=== PATIENT | male | born 1965 | race Caucasian/White ===

== ENCOUNTER 2017-04-06 05:14 | Inpatient (IN) | payer OTHER ==
[2017-04-04 12:59] LABS: BASOPHILS % (AUTO) 0.4 % (0-1); EOSINOPHILS # (AUTO) 0.3 X10'3 (0-0.9); EOSINOPHILS % (AUTO) 4.1 % (0-6); LYMPHOCYTES # (AUTO) 1.8 X10'3 (1.1-4.8); MEAN CORPUSCULAR HEMOGLOBIN 30.3 PG (27.0-31.0); MEAN CORPUSCULAR HGB CONC 34.6 % (33.0-36.5); MEAN CORPUSCULAR VOLUME 87.6 FL (78-98); MEAN PLATELET VOLUME 9.7 FL (7.4-10.4); MONOCYTES # (AUTO) 0.6 X10'3 (0-0.9); MONOCYTES % (AUTO) 9.4 % (2-12); NEUTROPHILS % (AUTO) 59.1 % (42-75); PRE OP HEMATOCRIT 46.5 % (42.0-52.0); PRE OP HEMOGLOBIN 16.1 g/dL (14.0-17.9); PRE OP PLATELET COUNT 184 X10'3 (140-440); RED BLOOD COUNT 5.31 X10'6 (4.70-6.10); RED CELL DISTRIBUTION WIDTH 13.4 % (11.5-14.5)
[2017-04-04 13:10] LABS: PRE OP INR 1.1 INR; PRE OP PROTIME 11.2 SECONDS (9.0-12.0)
[2017-04-04 13:13] LABS: CLARITY,URINE CLEAR (Clear); COLOR,URINE YELLOW (Yellow); GLUCOSE, URINE NEGATIVE (Neg); KETONES,URINE NEGATIVE (Neg); LEUKOCYTE ESTERASE ,URINE NEGATIVE (Neg); NITRITES, URINE NEGATIVE (Neg); OCCULT BLOOD,URINE NEGATIVE (Neg); PROTEIN,URINE NEGATIVE (Neg); UROBILINOGEN,URINE 0.2 E.U/dL (0.2-1.0)
[2017-04-04 13:16] LABS: UA COLLECTION TYPE CLN CATCH MIDSTREAM
[2017-04-04 13:17] LABS: ALBUMIN 3.8 G/DL (3.4-5.0); ALBUMIN/GLOBULIN RATIO 1.2 (1.1-1.5); ALKALINE PHOSPHATASE 132 IU/L (46-116); BLOOD UREA NITROGEN 20 MG/DL (7-18); BUN/CREATININE RATIO 16.8 (5.4-32.0); CHLORIDE 104 MMOL/L (99-107); CREATININE 1.19 MG/DL (0.60-1.10); PRE OP ANION GAP 7 (8-16); PRE OP AST 35 U/L (10-37); PRE OP BILIRUB, TOTAL 0.6 MG/DL (0.0-1.0); PRE OP GLUCOSE 212 MG/DL (70-104); PRE OP POTASSIUM 4.1 MMOL/L (3.4-5.1); PRE OP SODIUM 142 MMOL/L (135-145); TOTAL CARBON DIOXIDE 31.2 MMOL/L (24-32); eGFR 64 ML/MIN
[2017-04-04 13:18] LABS: PRE OP ALT 108 U/L (30-65)
[2017-04-04 13:20] LABS: HEMOGLOBIN A1C 7.1 % (4.5-6.2)
[2017-04-04 14:06] LABS: ABG BASE EXCESS -0.2 mmol/L (-2.0-3.0); ABG HCO3 23.5 mmol/L (22.0-26.0); ABG OXYGEN SATURATION 96.7 % (95-98); ABG PH (T) 7.433 (7.350-7.450); ABG PO2 (T) 90.9 mmHg (83-108); ALLEN'S TEST Positive; FCOHb 0.9 % (0.5-1.5); FMetHb 0.3 % (0.3-1.12); FO2Hb 95.5 % (94-100); TOTAL HEMOGLOBIN 16.3 G/dl (14.0-18.0)
[2017-04-05] MEDS: MESSAGE TO NURSING PO SCH (18:04)
[~2017-04-06] VITALS: Ht 190.5 cm; Wt 93.1 kg
[2017-04-06] VITALS (15 sets, daily range): BP systolic 96–138; BP diastolic 52–78
[~2017-04-06 05:14] MED LIST: AMLO10TA PO; ATEN50TA PO; ATOR40TA PO; CHLO25TA2 PO; GABA-530 PO; METF500T7 PO; OMEP20TA5 PO; insulin regular, human 100 UNITS in normal saline 100ml IV soln 99 ML IV SCH; iohexol 350MG/ML 100ml bottle IV ONE; ringers solution, lacted 1,000 ML IV SCH
[2017-04-06] MEDS ORDERED: DOCUMENT DATE & TIME OF BETA-BLOCKER PO ONE (05:30)
[2017-04-06] MEDS: insulin regular, human 100 UNITS in normal saline 100ml IV soln 99 ML IV SCH ×8 (05:30→23:01)
[2017-04-06] MEDS ORDERED: famotidine 20mg tablet PO ONE (05:30)
[2017-04-06] MEDS ORDERED: cefazolin/dext.iso 2gm/50ml 50 ML IV ONE (05:30)
[2017-04-06] MEDS ORDERED: diazepam 5mg tablet PO ONE (05:30)
[2017-04-06] MEDS ORDERED: vancomycin inj 1,500 MG in normal saline 300ml IV soln IV ONE (05:30)
[2017-04-06] MEDS ORDERED: dextrose 50%-water 50ml dispensing syringe IV PRN ×2 (05:30→12:50)
[2017-04-06] MEDS ORDERED: LORazepam 2 mg/ml vial IV ONE (05:30)
[2017-04-06] MEDS ORDERED: metoprolol tartrate 12.5mg (1/2 tablet) PO ONE (05:30)
[2017-04-06] MEDS ORDERED: LIDOcaine 1% (10mg/ml) 2ml vial ONE (05:51)
[2017-04-06] MEDS: mupirocin 2% ointment 22GM TP SCH ×3 (06:18→20:00)
[2017-04-06] MEDS ORDERED: protamine sulf. 10mg/ml inj. IV ONE (07:35)
[2017-04-06] MEDS ORDERED: calcium chloride 100 MG/1 ML inj IV ONE ×3 (07:35→14:06)
[2017-04-06] MEDS ORDERED: sevoflurane 250ml liquid IH ONE (07:35)
[2017-04-06] MEDS ORDERED: aminocaproic acid 250 MG/1 ML inj. ONE ×2 (07:35→10:00)
[2017-04-06] MEDS ORDERED: MIDAZolam 5mg/ml 2ml vial ONE (07:48)
[2017-04-06] MEDS ORDERED: SUFENTANIL CITRATE 50 MCG/ML 2ml ampule IV ONE (07:48)
[2017-04-06] MEDS ORDERED: rocuronium 10mg/ml inj IV ONE ×4 (07:51→08:49)
[2017-04-06] MEDS ORDERED: LIDOcaine 1%/PF (10mg/ml) 5ml vial ONE (07:51)
[2017-04-06] MEDS ORDERED: propofol inj 20 ML IV ONE (07:51)
[2017-04-06 08:45] LABS: ABG BASE EXCESS -1.5 mmol/L (-2.0-3.0); ABG OXYGEN SATURATION 98.9 % (95-98); ABG PCO2 43.4 mmHg (35.0-45.0); ABG PH 7.361 (7.350-7.450); ABG PO2 226.4 mmHg (60.0-100.0); CL (ABG) 104 mmol/L (99-107); FCOHb 0.5 % (0.5-1.5); FMetHb 0.3 % (0.3-1.12); FO2Hb 98.1 % (94-100); GLUCOSE (ABG) 197 mg/dl (70-105); IONIZED CA (ABG) 1.13 mmol/L (1.03-1.32); NA (ABG) 135 mmol/L (135-145); TOTAL HEMOGLOBIN 14.1 G/dl (14.0-18.0)
[2017-04-06 09:21] LABS: ABG HCO3 VENOUS 25.8 mmol/L; ABG PO2 VENOUS 43.5 mmHg; CL (ABG) 103 mmol/L (99-107); FCOHb VENOUS 0.8 %; FHHb VENOUS 21.1 %; FMetHb VENOUS 0.3 %; FO2Hb VENOUS 77.8 %; GLUCOSE (ABG) 188 mg/dl (70-105); IONIZED CA (ABG) 1.14 mmol/L (1.03-1.32); K (ABG) 4.1 mmol/L (3.3-5.1); NA (ABG) 134 mmol/L (135-145); TOTAL HEMOGLOBIN 14.2 G/dl (14.0-18.0)
[2017-04-06 09:26] LABS: ACT @ 1.70 U 267 SEC (193-297); ACT @ 2.84 U 379 SEC (260-420); BASELINE ACT 135 SEC (101-148); PATIENT WEIGHT 98.0k KG
[2017-04-06 09:46] LABS: ABG HCO3 26.1 mmol/L (22.0-26.0); ABG OXYGEN SATURATION 98.8 % (95-98); ABG PCO2 48.8 mmHg (35.0-45.0); ABG PH 7.346 (7.350-7.450); ABG PO2 307.9 mmHg (60.0-100.0); CL (ABG) 102 mmol/L (99-107); FCOHb 0.1 % (0.5-1.5); FMetHb 0.3 % (0.3-1.12); FO2Hb 98.4 % (94-100); GLUCOSE (ABG) 162 mg/dl (70-105); IONIZED CA (ABG) 1.05 mmol/L (1.03-1.32); K (ABG) 4.3 mmol/L (3.3-5.1); NA (ABG) 134 mmol/L (135-145); TOTAL HEMOGLOBIN 12.1 G/dl (14.0-18.0)
[2017-04-06] MEDS ORDERED: albumin (human) 25% 100 ML IV solution IV ONE (10:00)
[2017-04-06] MEDS ORDERED: MAGNESIUM SULFATE 4 MEQ/ML (1gm/2ml) injection ONE (10:00)
[2017-04-06] MEDS ORDERED: heparin 10,000 units/1 ML INJ ONE (10:00)
[2017-04-06] MEDS ORDERED: LIDOcaine 2% (20 mg/ml) 5ml cardiac syringe ONE (10:00)
[2017-04-06] MEDS ORDERED: phenylephrine 10mg/ml inj IV ONE ×2 (10:00→14:27)
[2017-04-06] MEDS ORDERED: potassium Cl 2 mEq/ml inj IV ONE (10:00)
[2017-04-06] MEDS ORDERED: methylPREDNISolone sod. succ. 500mg inj ONE (10:00)
[2017-04-06] MEDS ORDERED: sodium bicarbonate (8.4%) 1 mEq/ml syringe ONE (10:00)
[2017-04-06] MEDS: MESSAGE TO NURSING PO SCH (10:00)
[2017-04-06] MEDS ORDERED: heparin 1,000 units/ml 10ml inj ONE (10:00)
[2017-04-06 10:01] LABS: ABG BASE EXCESS VENOUS 0.1 mmol/L; ABG HCO3 VENOUS 26.5 mmol/L; ABG PCO2 VENOUS 50.4 mmHg; ABG PO2 VENOUS 52.2 mmHg; CL (ABG) 102 mmol/L (99-107); FCOHb VENOUS 0.6 %; FHHb VENOUS 14.6 %; FMetHb VENOUS 0.3 %; FO2Hb VENOUS 84.5 %; GLUCOSE (ABG) 160 mg/dl (70-105); IONIZED CA (ABG) 1.07 mmol/L (1.03-1.32); K (ABG) 4.3 mmol/L (3.3-5.1); NA (ABG) 134 mmol/L (135-145); TOTAL HEMOGLOBIN 12.3 G/dl (14.0-18.0)
[2017-04-06 10:15] LABS: ABG BASE EXCESS -0.1 mmol/L (-2.0-3.0); ABG HCO3 25.6 mmol/L (22.0-26.0); ABG OXYGEN SATURATION 98.8 % (95-98); ABG PH 7.364 (7.350-7.450); ABG PO2 316.1 mmHg (60.0-100.0); CL (ABG) 103 mmol/L (99-107); FCOHb 0.3 % (0.5-1.5); FMetHb 0.3 % (0.3-1.12); FO2Hb 98.2 % (94-100); GLUCOSE (ABG) 156 mg/dl (70-105); IONIZED CA (ABG) 1.08 mmol/L (1.03-1.32); NA (ABG) 134 mmol/L (135-145); TOTAL HEMOGLOBIN 12.4 G/dl (14.0-18.0)
[2017-04-06 10:40] LABS: ABG OXYGEN SATURATION 98.9 % (95-98); ABG PH 7.392 (7.350-7.450); ABG PO2 322.6 mmHg (60.0-100.0); CL (ABG) 104 mmol/L (99-107); FCOHb 0.4 % (0.5-1.5); FMetHb 0.3 % (0.3-1.12); FO2Hb 98.2 % (94-100); GLUCOSE (ABG) 143 mg/dl (70-105); K (ABG) 3.7 mmol/L (3.3-5.1); NA (ABG) 135 mmol/L (135-145); TOTAL HEMOGLOBIN 12.5 G/dl (14.0-18.0)
[2017-04-06 11:40] LABS: ABG BASE EXCESS 1.5 mmol/L (-2.0-3.0); ABG OXYGEN SATURATION 98.6 % (95-98); ABG PCO2 46.1 mmHg (35.0-45.0); ABG PH 7.385 (7.350-7.450); ABG PO2 247.3 mmHg (60.0-100.0); CL (ABG) 104 mmol/L (99-107); FCOHb 0.2 % (0.5-1.5); FMetHb 0.1 % (0.3-1.12); FO2Hb 98.3 % (94-100); GLUCOSE (ABG) 120 mg/dl (70-105); IONIZED CA (ABG) 1.46 mmol/L (1.03-1.32); K (ABG) 3.7 mmol/L (3.3-5.1); NA (ABG) 134 mmol/L (135-145)
[2017-04-06 12:10] LABS: ABG BASE EXCESS VENOUS 1.8 mmol/L; ABG HCO3 VENOUS 26.2 mmol/L; ABG PCO2 VENOUS 40.6 mmHg; ABG PO2 VENOUS 35.5 mmHg; CL (ABG) 104 mmol/L (99-107); FCOHb VENOUS 0.9 %; FHHb VENOUS 26.9 %; FMetHb VENOUS 0.2 %; GLUCOSE (ABG) 110 mg/dl (70-105); IONIZED CA (ABG) 1.25 mmol/L (1.03-1.32); K (ABG) 3.5 mmol/L (3.3-5.1); NA (ABG) 137 mmol/L (135-145); TOTAL HEMOGLOBIN 12.4 G/dl (14.0-18.0)
[2017-04-06] MEDS ORDERED: sodium chloride 0.45% 1,000 ML IV SCH (12:46)
[2017-04-06] MEDS ORDERED: niCARDipine/sod cl 20mg/200ml 200 ML IV PRN (12:46)
[2017-04-06] MEDS ORDERED: DOPamine 400mg/D5W 250ml 250 ML IV PRN (12:46)
[2017-04-06] MEDS ORDERED: nitroGLYCERIN-Tridil 50MG/D5W 250 ML IV PRN (12:46)
[2017-04-06] MEDS ORDERED: metoclopramide 5 mg/ml inj IV PRN (12:50)
[2017-04-06] MEDS ORDERED: magnesium 2GM in 50ml NS 50 ML IV PRN (12:50)
[2017-04-06] MEDS ORDERED: Neutra Phos packet PO PRN (12:50)
[2017-04-06] MEDS ORDERED: acetaminophen 325mg tablet PO PRN (12:50)
[2017-04-06] MEDS ORDERED: insulin regular, human inj. 100 UNITS in normal saline 100ml IV soln 100 ML IV SCH ×2 (12:50)
[2017-04-06] MEDS ORDERED: sodium phosphate inj. 15 MMOL in dextrose 5%-water 150 ML IV PRN (12:50)
[2017-04-06] MEDS ORDERED: potassium Cl 20mEq/100mL bag 100 ML IV PRN ×2 (12:50)
[2017-04-06] MEDS ORDERED: HYDROcodone/acetaminophen 10/325mg tab PO PRN (12:50)
[2017-04-06] MEDS ORDERED: normal saline 250ml IV soln 250 ML IV PRN (12:50)
[2017-04-06] MEDS ORDERED: sodium phosphate inj. 30 MMOL in dextrose 5%-water 250 ML IV PRN (12:50)
[2017-04-06] MEDS ORDERED: magnesium hydroxide 30ml (MOM) UD suspension PO PRN (12:50)
[2017-04-06] MEDS ORDERED: morphine 2 MG/ML inj. syringe IV PRN ×2 (12:50)
[2017-04-06] MEDS ORDERED: ondansetron/PF 4mg/2ml inj IV PRN (12:50)
[2017-04-06] MEDS: insulin Lispro (HumaLOG) vial - multi-dose SQ SCH ×2 (13:00→17:09)
[2017-04-06 13:01] LABS: HEMATOCRIT 29.4 % (42.0-52.0); HEMOGLOBIN 10.6 g/dl (14.0-17.9); MEAN CORPUSCULAR HEMOGLOBIN 30.9 PG (27.0-31.0); MEAN CORPUSCULAR VOLUME 85.8 FL (78-98); MEAN PLATELET VOLUME 8.6 FL (7.4-10.4); PLATELET COUNT 164 X10'3 (140-440); RED BLOOD COUNT 3.42 X10'6 (4.70-6.10); RED CELL DISTRIBUTION WIDTH 13.6 % (11.5-14.5); WHITE BLOOD COUNT 9.3 X10'3 (4.5-11.0)
[2017-04-06 13:16] LABS: INR 1.3 INR; PARTIAL THROMBOPLASTIN TIME 26 SECONDS (22-32)
[2017-04-06 13:56] LABS: ABG BASE EXCESS VENOUS -3.2 mmol/L; ABG HCO3 VENOUS 22.3 mmol/L; ABG PCO2 VENOUS 41.8 mmHg; ABG PO2 VENOUS 32.3 mmHg; CL (ABG) 107 mmol/L (99-107); FCOHb VENOUS 0.3 %; FHHb VENOUS 33.4 %; FMetHb VENOUS 0.3 %; GLUCOSE (ABG) 94 mg/dl (70-105); IONIZED CA (ABG) 0.99 mmol/L (1.03-1.32); NA (ABG) 138 mmol/L (135-145); TOTAL HEMOGLOBIN 9.6 G/dl (14.0-18.0)
[2017-04-06] MEDS ORDERED: ePHEDrine 50MG/ML INJ. ONE (14:27)
[2017-04-06 15:10] LABS: ABG BASE EXCESS -2.2 mmol/L (-2.0-3.0); ABG HCO3 21.7 mmol/L (22.0-26.0); ABG OXYGEN SATURATION 97.6 % (95-98); ABG PCO2 (T) 32.5 mmHg (35.0-48.0); ABG PH (T) 7.438 (7.350-7.450); ABG PO2 (T) 113.7 mmHg (83-108); FCOHb 0.3 % (0.5-1.5); FO2Hb 97.3 % (94-100); MINUTE VOLUME 11 L/min; PATIENT TEMPERATURE 35.8; PEEP 5 cm H2O; RESPIRATORY RATE 14 b/min; RESPIRATORY RATE (OBSERVED) 14 b/min; TIDAL VOLUME 800 mL; TOTAL HEMOGLOBIN 10.6 G/dl (14.0-18.0)
[2017-04-06 15:14] LABS: BASOPHILS % (AUTO) 0 % (0-1); EOSINOPHILS % (AUTO) 0.2 % (0-6); HEMATOCRIT 27.8 % (42.0-52.0); LYMPHOCYTES # (AUTO) 0.5 X10'3 (1.1-4.8); LYMPHOCYTES % (AUTO) 6.7 % (21-51); MEAN CORPUSCULAR HEMOGLOBIN 30.5 PG (27.0-31.0); MEAN CORPUSCULAR HGB CONC 35.9 % (33.0-36.5); MEAN CORPUSCULAR VOLUME 85.1 FL (78-98); MEAN PLATELET VOLUME 8.6 FL (7.4-10.4); MONOCYTES # (AUTO) 0.4 X10'3 (0-0.9); MONOCYTES % (AUTO) 4.9 % (2-12); NEUTROPHILS # (AUTO) 6.7 X10'3 (1.8-7.7); NEUTROPHILS % (AUTO) 88.2 % (42-75); PLATELET COUNT 120 X10'3 (140-440); RED BLOOD COUNT 3.27 X10'6 (4.70-6.10); RED CELL DISTRIBUTION WIDTH 13.4 % (11.5-14.5); WHITE BLOOD COUNT 7.6 X10'3 (4.5-11.0)
[2017-04-06 15:29] LABS: ALANINE AMINOTRANSFERASE 41 U/L (12-78); ALBUMIN 2.7 G/DL (3.4-5.0); ALBUMIN/GLOBULIN RATIO 1.6 (1.1-1.5); ALKALINE PHOSPHATASE 51 IU/L (46-116); ANION GAP 10 (8-16); ASPARTATE AMINO TRANSFERASE 50 U/L (10-37); BILIRUBIN,TOTAL 1.4 MG/DL (0.1-1.0); BLOOD UREA NITROGEN 19 MG/DL (7-18); BUN/CREATININE RATIO 17.8 (5.4-32.0); CALCIUM 8.5 MG/DL (8.5-10.1); CHLORIDE 112 MMOL/L (99-107); CREATININE 1.07 MG/DL (0.60-1.10); GLUCOSE 77 MG/DL (70-104); INR 1.2 INR; MAGNESIUM 1.5 MG/DL (1.5-2.4); PARTIAL THROMBOPLASTIN TIME 40 SECONDS (22-32); PHOSPHORUS 2.5 MG/DL (2.3-4.5); POTASSIUM 3.1 MMOL/L (3.5-5.1); PROTHROMBIN TIME 12.8 SECONDS (9.0-12.0); SODIUM 147 MMOL/L (135-145); TOTAL CARBON DIOXIDE 24.6 MMOL/L (24-32); TOTAL PROTEIN 4.4 G/DL (6.4-8.2); eGFR 73 ML/MIN
[2017-04-06] MEDS: cefazolin 1gm/NS 100mL 100 ML IV SCH (15:48)
[2017-04-06] MEDS: albumin (Human) 5% 250ml 250 ML IV PRN ×2 (15:57→16:52)
[2017-04-06] MEDS ORDERED: morphine 8mg/ml inj. syringe ONE (16:07)
[2017-04-06] MEDS: potassium Cl 20mEq/100mL bag 100 ML IV PRN ×5 (16:32→21:40)
[2017-04-06] MEDS: magnesium 4gm in 100ml NS 100 ML IV PRN (16:33)
[2017-04-06 17:11] LABS: ACTIVATED CLOTTING TIME 116 SEC (101-148)
[2017-04-06] MEDS ORDERED: morphine 4 MG/ML inj SYRINge ONE ×2 (19:22→22:28)
[2017-04-06] MEDS: vancomycin/NS 1 GM ADD-VANTAGE 250 ML IV SCH (19:55)
[2017-04-06] MEDS: docusate sod 100mg capsule PO SCH (20:00)
[2017-04-06] MEDS: mupirocin 2% ointment 22GM NS SCH (20:01)
[2017-04-06 21:27] LABS: BASOPHILS % (AUTO) 0.1 % (0-1); EOSINOPHILS # (AUTO) 0.1 X10'3 (0-0.9); EOSINOPHILS % (AUTO) 1.4 % (0-6); HEMATOCRIT 27.2 % (42.0-52.0); HEMOGLOBIN 9.6 g/dl (14.0-17.9); LYMPHOCYTES # (AUTO) 0.5 X10'3 (1.1-4.8); MEAN CORPUSCULAR HEMOGLOBIN 30.2 PG (27.0-31.0); MEAN CORPUSCULAR HGB CONC 35.1 % (33.0-36.5); MEAN PLATELET VOLUME 8.5 FL (7.4-10.4); MONOCYTES # (AUTO) 0.4 X10'3 (0-0.9); MONOCYTES % (AUTO) 5.6 % (2-12); NEUTROPHILS % (AUTO) 85.9 % (42-75); PLATELET COUNT 114 X10'3 (140-440); RED BLOOD COUNT 3.16 X10'6 (4.70-6.10); RED CELL DISTRIBUTION WIDTH 13.5 % (11.5-14.5)
[2017-04-06 21:37] LABS: ALBUMIN 3.3 G/DL (3.4-5.0); ANION GAP 12 (8-16); BLOOD UREA NITROGEN 18 MG/DL (7-18); BUN/CREATININE RATIO 17.5 (5.4-32.0); CALCIUM 7.8 MG/DL (8.5-10.1); CHLORIDE 109 MMOL/L (99-107); CREATININE 1.03 MG/DL (0.60-1.10); GLUCOSE 136 MG/DL (70-104); MAGNESIUM 2.3 MG/DL (1.5-2.4); POTASSIUM 3.8 MMOL/L (3.5-5.1); SODIUM 144 MMOL/L (135-145); TOTAL CARBON DIOXIDE 23.5 MMOL/L (24-32); eGFR 76 ML/MIN
[2017-04-06 22:16] LABS: ABG BASE EXCESS -4.3 mmol/L (-2.0-3.0); ABG HCO3 19.6 mmol/L (22.0-26.0); ABG OXYGEN SATURATION 96.4 % (95-98); ABG PH (T) 7.417 (7.350-7.450); ABG PO2 (T) 92.8 mmHg (83-108); FCOHb 0.3 % (0.5-1.5); FMetHb 0.1 % (0.3-1.12); MINUTE VOLUME 9 L/min; PATIENT TEMPERATURE 36.4; PEEP 5 cm H2O; RESPIRATORY RATE (OBSERVED) 15 b/min; TIDAL VOLUME 594 mL; TOTAL HEMOGLOBIN 9.9 G/dl (14.0-18.0)
[2017-04-07] VITALS (23 sets, daily range): BP systolic 98–152; BP diastolic 64–84
[2017-04-07] MEDS: cefazolin 1gm/NS 100mL 100 ML IV SCH ×4 (00:23→23:59)
[2017-04-07 02:35] LABS: ABG BASE EXCESS -1.6 mmol/L (-2.0-3.0); ABG HCO3 22.4 mmol/L (22.0-26.0); ABG OXYGEN SATURATION 96.6 % (95-98); ABG PCO2 (T) 34.3 mmHg (35.0-48.0); ABG PH (T) 7.431 (7.350-7.450); ABG PO2 (T) 94.3 mmHg (83-108); FCOHb 0.3 % (0.5-1.5); FMetHb 0.2 % (0.3-1.12); FO2Hb 96.1 % (94-100); MINUTE VOLUME 10 L/min; PATIENT TEMPERATURE 36.4; PEEP 5 cm H2O; RESPIRATORY RATE (OBSERVED) 16 b/min; TIDAL VOLUME 757 mL; TOTAL HEMOGLOBIN 10.6 G/dl (14.0-18.0)
[2017-04-07 03:01] LABS: BASOPHILS % (AUTO) 0 % (0-1); EOSINOPHILS # (AUTO) 0.1 X10'3 (0-0.9); EOSINOPHILS % (AUTO) 1.3 % (0-6); HEMOGLOBIN 9.9 g/dl (14.0-17.9); LYMPHOCYTES # (AUTO) 0.6 X10'3 (1.1-4.8); LYMPHOCYTES % (AUTO) 6.4 % (21-51); MEAN CORPUSCULAR HEMOGLOBIN 30.6 PG (27.0-31.0); MEAN CORPUSCULAR HGB CONC 35.4 % (33.0-36.5); MEAN CORPUSCULAR VOLUME 86.3 FL (78-98); MEAN PLATELET VOLUME 9.1 FL (7.4-10.4); MONOCYTES # (AUTO) 0.7 X10'3 (0-0.9); MONOCYTES % (AUTO) 7.7 % (2-12); NEUTROPHILS # (AUTO) 7.5 X10'3 (1.8-7.7); NEUTROPHILS % (AUTO) 84.6 % (42-75); PLATELET COUNT 119 X10'3 (140-440); RED BLOOD COUNT 3.25 X10'6 (4.70-6.10); RED CELL DISTRIBUTION WIDTH 13.7 % (11.5-14.5); WHITE BLOOD COUNT 8.8 X10'3 (4.5-11.0)
[2017-04-07 03:02] LABS: INR 1.1 INR; PARTIAL THROMBOPLASTIN TIME 25 SECONDS (22-32); PROTHROMBIN TIME 11.4 SECONDS (9.0-12.0)
[2017-04-07 03:09] LABS: ALANINE AMINOTRANSFERASE 57 U/L (12-78); ALBUMIN 3.4 G/DL (3.4-5.0); ALBUMIN/GLOBULIN RATIO 1.8 (1.1-1.5); ALKALINE PHOSPHATASE 49 IU/L (46-116); ANION GAP 8 (8-16); ASPARTATE AMINO TRANSFERASE 98 U/L (10-37); BILIRUBIN,TOTAL 0.9 MG/DL (0.1-1.0); BLOOD UREA NITROGEN 16 MG/DL (7-18); BUN/CREATININE RATIO 17.8 (5.4-32.0); CALCIUM 7.5 MG/DL (8.5-10.1); CHLORIDE 108 MMOL/L (99-107); GLUCOSE 124 MG/DL (70-104); PHOSPHORUS 3.8 MG/DL (2.3-4.5); POTASSIUM 4.6 MMOL/L (3.5-5.1); SODIUM 140 MMOL/L (135-145); TOTAL CARBON DIOXIDE 23.7 MMOL/L (24-32); TOTAL PROTEIN 5.3 G/DL (6.4-8.2); eGFR 89 ML/MIN
[2017-04-07] MEDS: insulin regular, human 100 UNITS in normal saline 100ml IV soln 99 ML IV SCH ×2 (04:15)
[2017-04-07] MEDS ORDERED: morphine 4 MG/ML inj SYRINge ONE (04:37)
[2017-04-07] MEDS: magnesium 4gm in 100ml NS 100 ML IV PRN (04:46)
[2017-04-07] MEDS ORDERED: amiodarone/D5 360MG/200ML BAG 200 ML IV SCH (07:09)
[2017-04-07] MEDS ORDERED: amiodarone 150mg/dext, iso-os 100 ML IV ONE (07:10)
[2017-04-07] MEDS: aspirin 325mg tablet, delayed-release (Ecotrin) PO SCH (07:41)
[2017-04-07] MEDS: gabapentin 100mg capsule PO SCH (07:41)
[2017-04-07] MEDS: docusate sod 100mg capsule PO SCH ×2 (07:41→19:58)
[2017-04-07] MEDS: ketorolac tromethamine 15mg/ml inj. IV SCH ×3 (07:41→19:58)
[2017-04-07] MEDS: pantoprazole 40mg Tablet.DR PO SCH (07:41)
[2017-04-07] MEDS: atorvastatin 10mg tablet PO SCH (07:41)
[2017-04-07] MEDS: mupirocin 2% ointment 22GM NS SCH ×2 (07:42→19:59)
[2017-04-07] MEDS: vancomycin/NS 1 GM ADD-VANTAGE 250 ML IV SCH ×2 (07:43→19:59)
[2017-04-07] MEDS: mupirocin 2% ointment 22GM TP SCH ×2 (07:49→19:59)
[2017-04-07] MEDS: MESSAGE TO NURSING PO SCH (07:49)
[2017-04-07] MEDS ORDERED: metoprolol tartrate 12.5mg (1/2 tablet) PO SCH (08:00)
[2017-04-07] MEDS: metoprolol tartrate 50mg tablet PO SCH ×2 (08:00→19:58)
[2017-04-07] MEDS: insulin Lispro (HumaLOG) vial - multi-dose SQ SCH ×5 (08:32→21:26)
[2017-04-07] MEDS ORDERED: morphine 4 MG/ML inj SYRINge IV PRN (12:43)
[2017-04-07] MEDS: morphine 4 MG/ML inj SYRINge IV PRN (13:14)
[2017-04-07] MEDS ORDERED: glucagon, human recombinant 1mg kit SUBCUT PRN (13:40)
[2017-04-07] MEDS ORDERED: dextrose 50%-water 50ml dispensing syringe IV PRN ×2 (13:40)
[2017-04-07] MEDS ORDERED: dextrose ORAL solution 15 GM/59 ML bottle PO PRN ×2 (13:40)
[2017-04-07] MEDS: HYDROcodone/acetaminophen 10/325mg tab PO PRN ×2 (20:00→23:59)
[2017-04-07] MEDS: insulin glargine (Lantus) pen - multi-dose SQ SCH (21:25)
[2017-04-08] VITALS (26 sets, daily range): BP systolic 94–119; BP diastolic 56–79
[2017-04-08] MEDS: ketorolac tromethamine 15mg/ml inj. IV SCH (02:26)
[2017-04-08 04:07] LABS: BASOPHILS % (AUTO) 0.2 % (0-1); EOSINOPHILS # (AUTO) 0.1 X10'3 (0-0.9); HEMATOCRIT 26.3 % (42.0-52.0); HEMOGLOBIN 9.3 g/dl (14.0-17.9); LYMPHOCYTES # (AUTO) 0.8 X10'3 (1.1-4.8); LYMPHOCYTES % (AUTO) 6.7 % (21-51); MEAN CORPUSCULAR HEMOGLOBIN 30.6 PG (27.0-31.0); MEAN CORPUSCULAR HGB CONC 35.4 % (33.0-36.5); MEAN CORPUSCULAR VOLUME 86.4 FL (78-98); MEAN PLATELET VOLUME 9.4 FL (7.4-10.4); MONOCYTES # (AUTO) 1.2 X10'3 (0-0.9); MONOCYTES % (AUTO) 9.8 % (2-12); NEUTROPHILS # (AUTO) 10.1 X10'3 (1.8-7.7); NEUTROPHILS % (AUTO) 82.3 % (42-75); PLATELET COUNT 105 X10'3 (140-440); RED BLOOD COUNT 3.04 X10'6 (4.70-6.10); RED CELL DISTRIBUTION WIDTH 13.5 % (11.5-14.5); WHITE BLOOD COUNT 12.3 X10'3 (4.5-11.0)
[2017-04-08 04:23] LABS: ANION GAP 7 (8-16); BLOOD UREA NITROGEN 23 MG/DL (7-18); BUN/CREATININE RATIO 21.9 (5.4-32.0); CALCIUM 7.8 MG/DL (8.5-10.1); CHLORIDE 104 MMOL/L (99-107); CREATININE 1.05 MG/DL (0.60-1.10); GLUCOSE 261 MG/DL (70-104); MAGNESIUM 2.3 MG/DL (1.5-2.4); PHOSPHORUS 2.6 MG/DL (2.3-4.5); POTASSIUM 4.7 MMOL/L (3.5-5.1); SODIUM 139 MMOL/L (135-145); TOTAL CARBON DIOXIDE 28.1 MMOL/L (24-32); eGFR 74 ML/MIN
[2017-04-08] MEDS: atorvastatin 10mg tablet PO SCH (07:30)
[2017-04-08] MEDS: metoprolol tartrate 50mg tablet PO SCH ×2 (07:30→18:59)
[2017-04-08] MEDS: aspirin 325mg tablet, delayed-release (Ecotrin) PO SCH (07:30)
[2017-04-08] MEDS: pantoprazole 40mg Tablet.DR PO SCH (07:30)
[2017-04-08] MEDS: gabapentin 100mg capsule PO SCH (07:30)
[2017-04-08] MEDS: docusate sod 100mg capsule PO SCH ×2 (07:30→20:16)
[2017-04-08] MEDS: mupirocin 2% ointment 22GM NS SCH (07:31)
[2017-04-08] MEDS: mupirocin 2% ointment 22GM TP SCH ×2 (07:36→20:00)
[2017-04-08] MEDS: insulin Lispro (HumaLOG) vial - multi-dose SQ SCH (08:49)
[2017-04-08] MEDS ORDERED: magnesium 4gm in 100ml NS 100 ML IV PRN (10:15)
[2017-04-08] MEDS ORDERED: potassium Cl 20 mEq SR tablet PO PRN ×2 (10:15)
[2017-04-08] MEDS ORDERED: magnesium 2GM in 50ml NS 50 ML IV PRN (10:15)
[2017-04-08] MEDS ORDERED: potassium Cl 40MEQ/NS 500ml 500 ML IV PRN ×2 (10:15)
[2017-04-08] MEDS ORDERED: magnesium Cl slow-release 64mg tablet PO PRN (10:15)
[2017-04-08] MEDS ORDERED: amiodarone/D5 360MG/200ML BAG 200 ML IV SCH (16:35)
[2017-04-08] MEDS ORDERED: amiodarone 150mg/dext, iso-os 100 ML IV ONE (16:35)
[2017-04-08] MEDS: magnesium Cl slow-release 64mg tablet PO SCH (19:00)
[2017-04-08] MEDS: potassium Cl 20 mEq SR tablet PO SCH (19:03)
[2017-04-08] MEDS: HYDROcodone/acetaminophen 10/325mg tab PO PRN (20:54)
[2017-04-08] MEDS: insulin glargine (Lantus) pen - multi-dose SQ SCH (21:47)
[2017-04-09] VITALS (12 sets, daily range): BP systolic 89–121; BP diastolic 60–83
[2017-04-09] MEDS: amiodarone/D5 450MG/250ML BAG 250 ML IV SCH ×2 (00:20→17:00)
[2017-04-09 06:10] LABS: BASOPHILS % (AUTO) 0.2 % (0-1); EOSINOPHILS # (AUTO) 0.2 X10'3 (0-0.9); EOSINOPHILS % (AUTO) 1.9 % (0-6); HEMOGLOBIN 9.5 g/dl (14.0-17.9); LYMPHOCYTES # (AUTO) 1.5 X10'3 (1.1-4.8); LYMPHOCYTES % (AUTO) 15.1 % (21-51); MEAN CORPUSCULAR HEMOGLOBIN 30.3 PG (27.0-31.0); MEAN CORPUSCULAR HGB CONC 35.1 % (33.0-36.5); MEAN CORPUSCULAR VOLUME 86.3 FL (78-98); MEAN PLATELET VOLUME 9.7 FL (7.4-10.4); MONOCYTES # (AUTO) 1.2 X10'3 (0-0.9); MONOCYTES % (AUTO) 12.1 % (2-12); NEUTROPHILS % (AUTO) 70.7 % (42-75); PLATELET COUNT 106 X10'3 (140-440); RED BLOOD COUNT 3.13 X10'6 (4.70-6.10); WHITE BLOOD COUNT 9.9 X10'3 (4.5-11.0)
[2017-04-09 07:19] LABS: ANION GAP 8 (8-16); BLOOD UREA NITROGEN 25 MG/DL (7-18); BUN/CREATININE RATIO 25.5 (5.4-32.0); CHLORIDE 105 MMOL/L (99-107); CREATININE 0.98 MG/DL (0.60-1.10); GLUCOSE 157 MG/DL (70-104); POTASSIUM 3.9 MMOL/L (3.5-5.1); SODIUM 141 MMOL/L (135-145); TOTAL CARBON DIOXIDE 27.6 MMOL/L (24-32); eGFR 80 ML/MIN
[2017-04-09] MEDS: mupirocin 2% ointment 22GM TP SCH ×2 (08:00→20:00)
[2017-04-09] MEDS: K and/or MAG REPLACEMENT MC SCH (08:00)
[2017-04-09] MEDS: docusate sod 100mg capsule PO SCH ×2 (08:36→20:36)
[2017-04-09] MEDS: atorvastatin 10mg tablet PO SCH (08:36)
[2017-04-09] MEDS: gabapentin 100mg capsule PO SCH (08:37)
[2017-04-09] MEDS: metoprolol tartrate 50mg tablet PO SCH ×2 (08:37→19:36)
[2017-04-09] MEDS: aspirin 325mg tablet, delayed-release (Ecotrin) PO SCH (08:37)
[2017-04-09] MEDS: potassium Cl 20 mEq SR tablet PO SCH ×2 (08:38→20:36)
[2017-04-09] MEDS: magnesium Cl slow-release 64mg tablet PO SCH ×2 (08:38→20:36)
[2017-04-09] MEDS: pantoprazole 40mg Tablet.DR PO SCH (08:38)
[2017-04-09] MEDS: morphine 4 MG/ML inj SYRINge IV PRN (08:47)
[2017-04-09] MEDS: insulin Lispro (HumaLOG) vial - multi-dose SQ SCH ×3 (09:20→19:32)
[2017-04-09] MEDS ORDERED: oxyCODONE/APAP 10/325mg tablet PO PRN ×2 (10:45)
[2017-04-09] MEDS ORDERED: oxyCODONE IR 5mg (immed. release) tablet PO PRN (10:45)
[2017-04-09] MEDS: ketorolac trometh. 30mg/ml inj. IV SCH ×2 (14:20→20:43)
[2017-04-09] MEDS: insulin glargine (Lantus) pen - multi-dose SQ SCH (23:21)
[2017-04-10] VITALS (8 sets, daily range): BP systolic 100–177; BP diastolic 61–81
[2017-04-10] MEDS: ketorolac trometh. 30mg/ml inj. IV SCH ×4 (02:40→20:24)
[2017-04-10 06:13] LABS: BASOPHILS % (AUTO) 0.3 % (0-1); EOSINOPHILS # (AUTO) 0.2 X10'3 (0-0.9); EOSINOPHILS % (AUTO) 2.4 % (0-6); HEMATOCRIT 28.1 % (42.0-52.0); HEMOGLOBIN 9.9 g/dl (14.0-17.9); LYMPHOCYTES # (AUTO) 1.6 X10'3 (1.1-4.8); LYMPHOCYTES % (AUTO) 15.9 % (21-51); MEAN CORPUSCULAR HEMOGLOBIN 30.5 PG (27.0-31.0); MEAN CORPUSCULAR HGB CONC 35.2 % (33.0-36.5); MEAN CORPUSCULAR VOLUME 86.6 FL (78-98); MEAN PLATELET VOLUME 9.7 FL (7.4-10.4); MONOCYTES # (AUTO) 1.3 X10'3 (0-0.9); NEUTROPHILS # (AUTO) 6.8 X10'3 (1.8-7.7); NEUTROPHILS % (AUTO) 68.4 % (42-75); PLATELET COUNT 131 X10'3 (140-440); RED BLOOD COUNT 3.25 X10'6 (4.70-6.10); RED CELL DISTRIBUTION WIDTH 14.1 % (11.5-14.5); WHITE BLOOD COUNT 9.9 X10'3 (4.5-11.0)
[2017-04-10 06:33] LABS: ALBUMIN 2.8 G/DL (3.4-5.0); ANION GAP 8 (8-16); BLOOD UREA NITROGEN 29 MG/DL (7-18); BUN/CREATININE RATIO 28.7 (5.4-32.0); CALCIUM 8.3 MG/DL (8.5-10.1); CHLORIDE 104 MMOL/L (99-107); CREATININE 1.01 MG/DL (0.60-1.10); GLUCOSE 139 MG/DL (70-104); MAGNESIUM 2.6 MG/DL (1.5-2.4); POTASSIUM 4.4 MMOL/L (3.5-5.1); SODIUM 142 MMOL/L (135-145); TOTAL CARBON DIOXIDE 29.6 MMOL/L (24-32); eGFR 78 ML/MIN
[2017-04-10] MEDS: metoprolol tartrate 50mg tablet PO SCH ×2 (07:20→20:24)
[2017-04-10] MEDS: aspirin 325mg tablet, delayed-release (Ecotrin) PO SCH (07:20)
[2017-04-10] MEDS: docusate sod 100mg capsule PO SCH ×2 (07:20→20:24)
[2017-04-10] MEDS: gabapentin 100mg capsule PO SCH (07:20)
[2017-04-10] MEDS: atorvastatin 10mg tablet PO SCH (07:20)
[2017-04-10] MEDS: mupirocin 2% ointment 22GM TP SCH ×2 (07:21→20:00)
[2017-04-10] MEDS: potassium Cl 20 mEq SR tablet PO SCH ×2 (08:00→20:00)
[2017-04-10] MEDS: K and/or MAG REPLACEMENT MC SCH (08:00)
[2017-04-10] MEDS: magnesium Cl slow-release 64mg tablet PO SCH ×2 (08:00→20:00)
[2017-04-10] MEDS: pantoprazole 40mg Tablet.DR PO SCH (09:44)
[2017-04-10] MEDS: insulin Lispro (HumaLOG) vial - multi-dose SQ SCH ×2 (09:46→19:05)
[2017-04-10] MEDS ORDERED: magnesium citrate 296ml oral solution PO ONE (10:15)
[2017-04-10] MEDS: amiodarone 200mg tablet PO SCH (20:24)
[2017-04-10] MEDS: insulin glargine (Lantus) pen - multi-dose SQ SCH (21:46)
[2017-04-11] MEDS: ketorolac trometh. 30mg/ml inj. IV SCH ×2 (02:10→08:00)
[2017-04-11 03:00] VITALS: BP 118/73
[2017-04-11 05:15] LABS: BASOPHILS % (AUTO) 0.2 % (0-1); EOSINOPHILS # (AUTO) 0.2 X10'3 (0-0.9); EOSINOPHILS % (AUTO) 2.6 % (0-6); HEMATOCRIT 28.5 % (42.0-52.0); LYMPHOCYTES # (AUTO) 1.3 X10'3 (1.1-4.8); LYMPHOCYTES % (AUTO) 14.1 % (21-51); MEAN CORPUSCULAR HEMOGLOBIN 30.7 PG (27.0-31.0); MEAN CORPUSCULAR HGB CONC 35.2 % (33.0-36.5); MEAN CORPUSCULAR VOLUME 87.3 FL (78-98); MEAN PLATELET VOLUME 9.1 FL (7.4-10.4); MONOCYTES # (AUTO) 0.9 X10'3 (0-0.9); MONOCYTES % (AUTO) 10.4 % (2-12); NEUTROPHILS # (AUTO) 6.5 X10'3 (1.8-7.7); NEUTROPHILS % (AUTO) 72.7 % (42-75); PLATELET COUNT 137 X10'3 (140-440); RED BLOOD COUNT 3.26 X10'6 (4.70-6.10); RED CELL DISTRIBUTION WIDTH 13.5 % (11.5-14.5)
[2017-04-11 05:38] LABS: ALBUMIN 2.7 G/DL (3.4-5.0); ANION GAP 8 (8-16); BLOOD UREA NITROGEN 25 MG/DL (7-18); BUN/CREATININE RATIO 23.8 (5.4-32.0); CALCIUM 7.9 MG/DL (8.5-10.1); CHLORIDE 106 MMOL/L (99-107); CREATININE 1.05 MG/DL (0.60-1.10); GLUCOSE 138 MG/DL (70-104); MAGNESIUM 2.6 MG/DL (1.5-2.4); POTASSIUM 4.6 MMOL/L (3.5-5.1); SODIUM 142 MMOL/L (135-145); TOTAL CARBON DIOXIDE 28.3 MMOL/L (24-32); eGFR 74 ML/MIN
[2017-04-11 06:00] VITALS: BP 100/73
[2017-04-11] MEDS: potassium Cl 20 mEq SR tablet PO SCH (08:00)
[2017-04-11] MEDS: magnesium Cl slow-release 64mg tablet PO SCH (08:00)
[2017-04-11] MEDS: gabapentin 100mg capsule PO SCH (08:22)
[2017-04-11] MEDS: atorvastatin 10mg tablet PO SCH (08:22)
[2017-04-11] MEDS: aspirin 325mg tablet, delayed-release (Ecotrin) PO SCH (08:22)
[2017-04-11] MEDS: docusate sod 100mg capsule PO SCH (08:23)
[2017-04-11] MEDS: amiodarone 200mg tablet PO SCH (08:23)
[2017-04-11] MEDS: metoprolol tartrate 50mg tablet PO SCH (08:23)
[2017-04-11] MEDS: pantoprazole 40mg Tablet.DR PO SCH (08:23)
[2017-04-11] MEDS: mupirocin 2% ointment 22GM TP SCH (08:31)
[2017-04-11] MEDS: K and/or MAG REPLACEMENT MC SCH (08:44)
[2017-04-11 11:00] VITALS: BP 110/76
[2017-04-11] MEDS ORDERED: ASPI-41 PO (11:05)
[2017-04-11] MEDS ORDERED: AMIO200T57 PO (11:05)
[2017-04-11] MEDS ORDERED: COL100C PO (11:05)
[2017-04-11] MEDS ORDERED: HYDR-3972 PO (11:05)
== END 2017-04-11 11:00 | disposition home or self-care (01) | DRG 219 ==
LOC: PAS IN 05:14 → EDSTATUS 08:30 → CICU 2S 11:11 → PCU 3S 04-08 15:46
PROVIDERS: ADMIT Thoracic Surgery (Cardiothoracic Vascular Surgery); ATTEND Thoracic Surgery (Cardiothoracic Vascular Surgery)
PROC: B32T1ZZ Computerized Tomography (CT Scan) of Left Pulmonary Artery using Low Osmolar Contrast (ICD-10-PCS; 2017-04-05)
PROC: B3201ZZ Computerized Tomography (CT Scan) of Thoracic Aorta using Low Osmolar Contrast (ICD-10-PCS; 2017-04-05)
PROC: B32S1ZZ Computerized Tomography (CT Scan) of Right Pulmonary Artery using Low Osmolar Contrast (ICD-10-PCS; 2017-04-05)
PROC: BB241ZZ Computerized Tomography (CT Scan) of Bilateral Lungs using Low Osmolar Contrast (ICD-10-PCS; 2017-04-05)
PROC: 5A1221Z Performance of Cardiac Output, Continuous (ICD-10-PCS; 2017-04-06)
PROC: 02RF08Z Replacement of Aortic Valve with Zooplastic Tissue, Open Approach (ICD-10-PCS; 2017-04-06)
PROC: 30233M1 Transfusion of Nonautologous Plasma Cryoprecipitate into Peripheral Vein, Percutaneous Approach (ICD-10-PCS; 2017-04-06)
PROC: 30233N1 Transfusion of Nonautologous Red Blood Cells into Peripheral Vein, Percutaneous Approach (ICD-10-PCS; 2017-04-06)
PROC: 30233R1 Transfusion of Nonautologous Platelets into Peripheral Vein, Percutaneous Approach (ICD-10-PCS; 2017-04-06)
PROC: 03HY32Z Insertion of Monitoring Device into Upper Artery, Percutaneous Approach (ICD-10-PCS; 2017-04-06)
PROC: B24BZZ4 Ultrasonography of Heart with Aorta, Transesophageal (ICD-10-PCS; 2017-04-06)
PROC: 02HV33Z Insertion of Infusion Device into Superior Vena Cava, Percutaneous Approach (ICD-10-PCS; 2017-04-06)
PROC: B548ZZA Ultrasonography of Superior Vena Cava, Guidance (ICD-10-PCS; 2017-04-06)
PROC: 02RX0JZ Replacement of Thoracic Aorta, Ascending/Arch with Synthetic Substitute, Open Approach (ICD-10-PCS; principal; 2017-04-06 07:35)
DX: I35.1 Nonrheumatic aortic (valve) insufficiency (principal); I71.1 Thoracic aortic aneurysm, ruptured; I11.0 Hypertensive heart disease with heart failure; I50.32 Chronic diastolic (congestive) heart failure; D68.9 Coagulation defect, unspecified; E11.40 Type 2 diabetes mellitus with diabetic neuropathy, unspecified; I48.91 Unspecified atrial fibrillation; E78.5 Hyperlipidemia, unspecified; K21.9 Gastro-esophageal reflux disease without esophagitis; Z87.891 Personal history of nicotine dependence; Z82.49 Family history of ischemic heart disease and other diseases of the circulatory system; Z83.3 Family history of diabetes mellitus
CPT/HCPCS: 0232T; 93312; 93325; 36415; 36600; 71045; 71046; 71275; 80048; 80053; 81003; 82330; 82435; 82803; 82947; 82948; 83036; 83735; 84100; 84132; 84295; 85018; 85025; 85027; 85347; 85384; 85610; 85730; 86885; 86900; 86901; 86920; 87070; 93005; 93880; 93971; 94002; 94003; 94010; 94760; 97110; 97116; 97161; 97530; A6255; A6257; A6402; A6449; A7000; A7048; C1713; C1751; C1768; J0282; J0690; J1644; J1815; J1885; J2001; J2060; J2150; J2250; J2270; J2370; J2704; J2720; J2930; J3370; J3475; J3480; J3490; J7030; J7120; P9012; P9016; P9035; P9045; P9047; Q9967

== ENCOUNTER 2017-04-13 05:35 | Observation (INO) | payer OTHER ==
[~2017-04-13] VITALS: Ht 190.5 cm; Wt 95.5 kg
[~2017-04-13 05:35] MED LIST changes: +AMIO200T57 PO; +ASPI-41 PO; +COL100C PO; +HYDR-3972 PO; -insulin regular, human 100 UNITS in normal saline 100ml IV soln 99 ML IV SCH; -iohexol 350MG/ML 100ml bottle IV ONE; -ringers solution, lacted 1,000 ML IV SCH
[2017-04-13] MEDS ORDERED: aspirin 81mg tab.chew PO ONE (05:45)
[2017-04-13 06:04] LABS: BASOPHILS % (AUTO) 0.2 % (0-1); EOSINOPHILS # (AUTO) 0.4 X10'3 (0-0.9); EOSINOPHILS % (AUTO) 2.6 % (0-6); HEMATOCRIT 31.3 % (42.0-52.0); HEMOGLOBIN 10.9 g/dl (14.0-17.9); LYMPHOCYTES # (AUTO) 1.2 X10'3 (1.1-4.8); LYMPHOCYTES % (AUTO) 8.2 % (21-51); MEAN CORPUSCULAR HEMOGLOBIN 30.3 PG (27.0-31.0); MEAN CORPUSCULAR HGB CONC 34.8 % (33.0-36.5); MEAN PLATELET VOLUME 9.1 FL (7.4-10.4); MONOCYTES # (AUTO) 1.4 X10'3 (0-0.9); MONOCYTES % (AUTO) 9.7 % (2-12); NEUTROPHILS # (AUTO) 11.2 X10'3 (1.8-7.7); NEUTROPHILS % (AUTO) 79.3 % (42-75); PLATELET COUNT 192 X10'3 (140-440); RED CELL DISTRIBUTION WIDTH 13.9 % (11.5-14.5); WHITE BLOOD COUNT 14.1 X10'3 (4.5-11.0)
[2017-04-13 06:08] LABS: INR 1.1 INR; PARTIAL THROMBOPLASTIN TIME 25 SECONDS (22-32); PROTHROMBIN TIME 11.8 SECONDS (9.0-12.0)
[2017-04-13 06:21] LABS: ALANINE AMINOTRANSFERASE 92 U/L (12-78); ALBUMIN 2.8 G/DL (3.4-5.0); ALBUMIN/GLOBULIN RATIO 0.8 (1.1-1.5); ALKALINE PHOSPHATASE 154 IU/L (46-116); ANION GAP 10 (8-16); ASPARTATE AMINO TRANSFERASE 28 U/L (10-37); BILIRUBIN,TOTAL 0.7 MG/DL (0.1-1.0); BLOOD UREA NITROGEN 22 MG/DL (7-18); BUN/CREATININE RATIO 18.5 (5.4-32.0); CALCIUM 8.4 MG/DL (8.5-10.1); CHLORIDE 101 MMOL/L (99-107); CREATININE 1.19 MG/DL (0.60-1.10); GLUCOSE 213 MG/DL (70-104); MAGNESIUM 2.1 MG/DL (1.5-2.4); POTASSIUM 4.1 MMOL/L (3.5-5.1); SODIUM 138 MMOL/L (135-145); TOTAL CARBON DIOXIDE 27.1 MMOL/L (24-32); TOTAL PROTEIN 6.5 G/DL (6.4-8.2); eGFR 64 ML/MIN
[2017-04-13] MEDS ORDERED: normal saline 1000ml 1,000 ML IV SCH (06:45)
[2017-04-13] MEDS ORDERED: dextrose 50%-water 50ml dispensing syringe IV PRN ×2 (08:10)
[2017-04-13] MEDS ORDERED: HYDROcodone/acetaminophen 5mg/325mg tablet PO PRN (08:10)
[2017-04-13] MEDS ORDERED: dextrose ORAL solution 15 GM/59 ML bottle PO PRN ×2 (08:10)
[2017-04-13] MEDS ORDERED: acetaminophen 325mg tablet PO PRN ×2 (08:10)
[2017-04-13] MEDS ORDERED: mag hydrox/Alum hydrox/simeth 30ml oral suspension PO PRN (08:10)
[2017-04-13] MEDS ORDERED: magnesium hydroxide 30ml (MOM) UD suspension PO PRN (08:10)
[2017-04-13] MEDS ORDERED: glucagon, human recombinant 1mg kit SUBCUT PRN (08:10)
[2017-04-13] MEDS ORDERED: MESSAGE TO PHARMACY PO ONE (08:10)
[2017-04-13] MEDS ORDERED: HYDROcodone/acetaminophen 10/325mg tab PO PRN (08:10)
[2017-04-13] MEDS ORDERED: ondansetron/PF 4mg/2ml inj IV PRN (08:10)
[2017-04-13] MEDS ORDERED: atorvastatin 20mg tablet PO ONE (08:25)
[2017-04-13] MEDS: pantoprazole 40mg Tablet.DR PO SCH (09:48)
[2017-04-13] MEDS ORDERED: iohexol 350MG/ML 100ml bottle IV ONE (16:15)
[2017-04-13 16:59] VITALS: BP 114/68
[2017-04-13 17:30] VITALS: BP 104/71
[2017-04-13 18:00] VITALS: BP 110/69
[2017-04-13] MEDS ORDERED: amiodarone 200mg tablet PO SCH (20:00)
[2017-04-13] MEDS: docusate sod 100mg capsule PO SCH (20:37)
[2017-04-13] MEDS: insulin Lispro (HumaLOG) vial - multi-dose SQ SCH (20:41)
[2017-04-13] MEDS: normal saline 1000ml 1,000 ML IV SCH (20:53)
[2017-04-13] MEDS ORDERED: temazepam 15mg capsule PO PRN (21:00)
[2017-04-13] MEDS: insulin glargine (Lantus) pen - multi-dose SQ SCH (22:05)
[2017-04-14] VITALS: BP 109/70
[2017-04-14] MEDS: normal saline 1000ml 1,000 ML IV SCH ×2 (05:34→15:01)
[2017-04-14 06:00] VITALS: BP 125/68
[2017-04-14 06:06] LABS: BASOPHILS % (AUTO) 0.3 % (0-1); EOSINOPHILS # (AUTO) 0.2 X10'3 (0-0.9); EOSINOPHILS % (AUTO) 2.3 % (0-6); HEMATOCRIT 29.3 % (42.0-52.0); HEMOGLOBIN 10.1 g/dl (14.0-17.9); LYMPHOCYTES # (AUTO) 1.1 X10'3 (1.1-4.8); LYMPHOCYTES % (AUTO) 12.5 % (21-51); MEAN CORPUSCULAR HEMOGLOBIN 29.9 PG (27.0-31.0); MEAN CORPUSCULAR HGB CONC 34.4 % (33.0-36.5); MEAN PLATELET VOLUME 9.5 FL (7.4-10.4); MONOCYTES % (AUTO) 11.6 % (2-12); NEUTROPHILS # (AUTO) 6.4 X10'3 (1.8-7.7); NEUTROPHILS % (AUTO) 73.3 % (42-75); PLATELET COUNT 180 X10'3 (140-440); RED BLOOD COUNT 3.36 X10'6 (4.70-6.10); RED CELL DISTRIBUTION WIDTH 13.9 % (11.5-14.5); WHITE BLOOD COUNT 8.8 X10'3 (4.5-11.0)
[2017-04-14 06:14] LABS: ALBUMIN 2.5 G/DL (3.4-5.0); ANION GAP 9 (8-16); BLOOD UREA NITROGEN 18 MG/DL (7-18); CALCIUM 8.1 MG/DL (8.5-10.1); CHLORIDE 105 MMOL/L (99-107); GLUCOSE 160 MG/DL (70-104); POTASSIUM 3.9 MMOL/L (3.5-5.1); SODIUM 139 MMOL/L (135-145); TOTAL CARBON DIOXIDE 25.2 MMOL/L (24-32); eGFR 78 ML/MIN
[2017-04-14 08:00] VITALS: BP_SYST 112; BP_SYST 125; BP_SYST 83; BP_DIAS 55; BP_DIAS 68; BP_DIAS 77
[2017-04-14] MEDS ORDERED: chlorthalidone 25mg tablet PO SCH (08:00)
[2017-04-14] MEDS ORDERED: amLODIPine 5mg tablet PO SCH (08:00)
[2017-04-14] MEDS ORDERED: atenolol 50mg tablet PO SCH ×2 (08:00)
[2017-04-14] MEDS: insulin Lispro (HumaLOG) vial - multi-dose SQ SCH ×3 (09:15→20:11)
[2017-04-14] MEDS: aspirin 325mg tablet, delayed-release (Ecotrin) PO SCH (09:15)
[2017-04-14] MEDS: docusate sod 100mg capsule PO SCH ×2 (09:16→20:13)
[2017-04-14] MEDS: atorvastatin 20mg tablet PO SCH (09:16)
[2017-04-14] MEDS: pantoprazole 40mg Tablet.DR PO SCH (09:16)
[2017-04-14] MEDS: gabapentin 100mg capsule PO SCH (09:16)
[2017-04-14] MEDS: amiodarone 200mg tablet PO SCH (09:16)
[2017-04-14 12:00] VITALS: BP 108/67
[2017-04-14 18:00] VITALS: BP_SYST 117; BP_SYST 128; BP_SYST 130; BP_DIAS 78; BP_DIAS 80
[2017-04-14] MEDS: insulin glargine (Lantus) pen - multi-dose SQ SCH (22:44)
[2017-04-15] VITALS: BP 118/70
[2017-04-15] MEDS: normal saline 1000ml 1,000 ML IV SCH ×2 (00:58→10:50)
[2017-04-15 06:21] LABS: ALBUMIN 2.5 G/DL (3.4-5.0); ANION GAP 10 (8-16); BLOOD UREA NITROGEN 16 MG/DL (7-18); BUN/CREATININE RATIO 16.8 (5.4-32.0); CALCIUM 8.3 MG/DL (8.5-10.1); CHLORIDE 104 MMOL/L (99-107); CREATININE 0.95 MG/DL (0.60-1.10); GLUCOSE 141 MG/DL (70-104); POTASSIUM 3.8 MMOL/L (3.5-5.1); SODIUM 140 MMOL/L (135-145); TOTAL CARBON DIOXIDE 25.7 MMOL/L (24-32); eGFR 83 ML/MIN
[2017-04-15 07:22] LABS: BASOPHILS % (AUTO) 0.3 % (0-1); EOSINOPHILS # (AUTO) 0.2 X10'3 (0-0.9); HEMATOCRIT 29.6 % (42.0-52.0); HEMOGLOBIN 10.3 g/dl (14.0-17.9); LYMPHOCYTES # (AUTO) 1.1 X10'3 (1.1-4.8); LYMPHOCYTES % (AUTO) 13.4 % (21-51); MEAN CORPUSCULAR HGB CONC 34.7 % (33.0-36.5); MEAN CORPUSCULAR VOLUME 86.4 FL (78-98); MEAN PLATELET VOLUME 9.4 FL (7.4-10.4); MONOCYTES # (AUTO) 0.9 X10'3 (0-0.9); NEUTROPHILS # (AUTO) 6.1 X10'3 (1.8-7.7); NEUTROPHILS % (AUTO) 73.3 % (42-75); PLATELET COUNT 197 X10'3 (140-440); RED BLOOD COUNT 3.43 X10'6 (4.70-6.10); WHITE BLOOD COUNT 8.4 X10'3 (4.5-11.0)
[2017-04-15 08:00] VITALS: BP 118/74
[2017-04-15] MEDS: gabapentin 100mg capsule PO SCH (08:26)
[2017-04-15] MEDS: docusate sod 100mg capsule PO SCH (08:26)
[2017-04-15] MEDS: pantoprazole 40mg Tablet.DR PO SCH (08:26)
[2017-04-15] MEDS: atorvastatin 20mg tablet PO SCH (08:26)
[2017-04-15] MEDS: aspirin 325mg tablet, delayed-release (Ecotrin) PO SCH (08:27)
[2017-04-15] MEDS: amiodarone 200mg tablet PO SCH (08:27)
[2017-04-15] MEDS: insulin Lispro (HumaLOG) vial - multi-dose SQ SCH ×2 (09:28→13:21)
[2017-04-15 11:04] VITALS: BP_SYST 104; BP_SYST 109; BP_SYST 118; BP_DIAS 71; BP_DIAS 74
[2017-04-15 11:26] VITALS: BP 109/77
[2017-04-15] MEDS ORDERED: AMIO200T57 PO (12:36)
== END 2017-04-15 14:00 | disposition home or self-care (01) ==
LOC: ER 05:36 → ED HOLD 08:06 → SUR 3N 16:45 → MED 3N 17:22
PROVIDERS: ADMIT Hospitalist; ATTEND Hospitalist
DX: R55 Syncope and collapse (principal); I35.2 Nonrheumatic aortic (valve) stenosis with insufficiency; E11.9 Type 2 diabetes mellitus without complications; E78.00 Pure hypercholesterolemia, unspecified; I10 Essential (primary) hypertension; E86.0 Dehydration; I31.3 Pericardial effusion (noninflammatory); I48.91 Unspecified atrial fibrillation; Z95.2 Presence of prosthetic heart valve
CPT/HCPCS: 36415; 70450; 71045; 71275; 80048; 80053; 82948; 83735; 83880; 84439; 84443; 84484; 85025; 85610; 85730; 87070; 93005; 93308; 96360; 96361; 96372; 99285; G0378; J1815; J7030; Q9967